=== PATIENT | male | born 1980 | race Caucasian/White ===

== ENCOUNTER 2019-09-27 13:19 | Emergency (ER) | payer BC ==
[~2019-09-27] VITALS: Ht 180.3 cm; Wt 81.6 kg
--- NOTE | 2019-09-27 14:50 | NUR ---
Dr. Roman at bedside for MSE
[2019-09-27] MEDS ORDERED: IV NORMAL SALINE 1000 ML BAG IV ONE (15:00)
[2019-09-27] MEDS ORDERED: KETOROLAC TROMETHAMINE 30 MG INJ IVP ONE (15:00)
[2019-09-27] MEDS ORDERED: KETOROLAC TROMETHAMINE 30 MG INJ ONE (15:19)
[2019-09-27 15:37] LABS: *BILIRUBIN,URIN NEGATIVE (NEGATIVE); *BLOOD, URINE NEGATIVE (NEGATIVE); *CLARITY,URINE CLEAR (CLEAR); *COLOR,URINE YELLOW (YELLOW); *KETONES,URINE NEGATIVE (NEGATIVE); *UROBILINOGEN,URINE 0.2 E.U./dl (NORMAL); LEUKOCYTE ESTERASE ,URINE NEGATIVE (NEGATIVE); NITRITE, URINE NEGATIVE (NEGATIVE); PH,URINE 5.5 (5.0-8.0); UGLUCOSE NEGATIVE (NEGATIVE)
[2019-09-27 15:41] LABS: BASOPHILS # (AUTO) 0.1 K/uL (0.0-8.0); BASOPHILS % (AUTO) 0.6 % (0.0-2.0); HEMATOCRIT 44.9 % (36.7-47.1); HEMOGLOBIN 15.1 g/dL (12.5-16.3); LYMPHOCYTES # (AUTO) 1.7 K/uL (20.0-40.0); LYMPHOCYTES % (AUTO) 14.8 % (20.5-51.5); MEAN CORPUSCULAR HEMOGLOBIN 28.9 uug (23.8-33.4); MEAN CORPUSCULAR HGB CONC 34 g/dL (32.5-36.3); MEAN CORPUSCULAR VOLUME 85.7 fL (73.0-96.2); MONOCYTES # (AUTO) 0.6 K/uL (2.0-10.0); MONOCYTES % (AUTO) 5.6 % (0.0-11.0); NEUTROPHILS # (AUTO) 8.8 K/uL (1.8-8.9); PLATELET COUNT (AUTO) 333 K/uL (152-348); RED BLOOD CELL COUNT(AUTO) 5.23 MIL/uL (4.06-5.63); WHITE BLOOD COUNT (AUTO) 11.2 K/uL (3.6-10.2)
[2019-09-27 15:47] LABS: *AMPHETAMINE, URINE NEGATIVE (NEGATIVE); *BARBITURATE, URINE NEGATIVE (NEGATIVE); *CANNABINOID, URINE NEGATIVE (NEGATIVE); *COCCAINE, URINE NEGATIVE (NEGATIVE); *OPIATE, URINE NEGATIVE (NEGATIVE); *PHENCYCLIDINE SCREEN,URINE NEGATIVE (NEGATIVE)
[2019-09-27 15:49] LABS: CARBON DIOXIDE 30 mmol/L (21-32); CHLORIDE 98 mmol/L (98-107); CREATININE 1.2 mg/dL (0.6-1.3); GLUCOSE 89 mg/dL (74-106); POTASSIUM 3.9 mmol/L (3.5-5.1); UREA NITROGEN, BLOOD 21 mg/dL (7-18)
[2019-09-27 15:59] LABS: ALANINE AMINOTRANSFERASE 38 U/L (16-63); ALKALINE PHOSPHATASE 68 U/L (50-136); ASPARTATE AMINOTRANSFERASE 20 U/L (15-37); BILIRUBIN,DIRECT 0.1 mg/dL (0.0-0.2); BILIRUBIN,TOTAL 0.5 mg/dL (0.2-1.0); TOTAL PROTEIN, SERUM 8.1 g/dL (6.4-8.2)
[2019-09-27 16:04] LABS: ACETAMINOPHEN < 2.0 ug/mL (10-30)
[2019-09-27 16:05] LABS: ETHANOL < 3 MG/DL (0-0)
[2019-09-27 16:11] LABS: THYROID STIMULATING HORMONE 1.819 mIU/mL (0.358-3.740)
[2019-09-27 17:45] LABS: *MONOTEST NEGATIVE (NEGATIVE)
--- NOTE | 2019-09-27 18:10 | NUR ---
IV removed. Catheter intact and site benign. Pressure and 4x4 gauze applied to site. No bleeding noted. Patient discharged to home in stable condition. Written and verbal after care instructions given. Patient verbalizes understanding of instructions. Stressed follow up or return to ER for worsening s/s. Patient ambulating with steady gait. NAD noted
[2019-09-27 18:29] VITALS: BP 139/72
== END 2019-09-27 18:10 | disposition home or self-care (01) ==
LOC: ER 13:19
DX: R53.1 Weakness (principal); R53.83 Other fatigue; J02.9 Acute pharyngitis, unspecified; Z20.828 Contact with and (suspected) exposure to other viral communicable diseases
CPT/HCPCS: 36415; 71045; 80048; 80076; 80307 ×2; 80329; 81001; 82140; 83735; 84443; 84484; 85025; 86308; 86403; 87070; 87426; 93005; 96361; 96374; 99285; G0480; J1885; 70030-TC; A4663; J7030